=== PATIENT | male | born 1990 | race Caucasian/White ===

== ENCOUNTER → 2018-03-18 11:31 | Outpatient (CLI) | payer MEDICAID, SELFPAY ==
--- NOTE | 2018-03-18 | DI.RAD.S_ITS ---
PROCEDURE: XR TIBIA FIBULA RT 2V INDICATIONS: 27-year-old male with cerebral palsy, and prior tibial plateau fracture fixation. TECHNIQUE: 2 views of the tibia and fibula were acquired. COMPARISON: [facility], CR, XR KNEE 1 OR 2VW LT, 04/04/2017, 14:09. [facility], CR, XR KNEE 1 OR 2VW LT, 01/21/2017, 10:52. [facility], CR, XR KNEE 1 OR 2VW LT, 12/27/2016, 13:30. [facility], CR, XR KNEE 1 OR 2VW LT, 12/11/2016, 14:17. [facility], CR, XR KNEE 1 OR 2VW LT, 12/04/2016, 12:29. FINDINGS: Bones: Lateral tibial plateau buttress plate and screws remain intact and in expected positions. No new fractures or dislocations. No suspicious bony lesions. Soft tissues: No suspicious soft tissue calcifications or masses. IMPRESSION: Status post open reduction internal fixation of lateral tibial plateau fracture, with surgical hardware remaining intact and in expected positions. Dictated by: Jonathan Hong M.D. on 03/18/2018 at 12:29 Approved by: Jonathan Hong M.D. on 03/18/2018 at 12:31
--- NOTE | 2018-03-18 | DI.RAD.S_ITS ---
PROCEDURE: XR TIBIA FUBULA RT 2V INDICATIONS: 27-year-old male with cerebral palsy and lower leg trauma. TECHNIQUE: 2 views of the tibia and fibula were acquired. COMPARISON: None. FINDINGS: Bones: No fractures or dislocations. No suspicious bony lesions. Soft tissues: No suspicious soft tissue calcifications or masses. IMPRESSION: Normal right lower leg. Dictated by: Jonathan Hong M.D. on 03/18/2018 at 12:28 Approved by: Jonathan Hong M.D. on 03/18/2018 at 12:29
== END ==
PROVIDERS: Visit Provider Family Medicine
DX: S89.91XA Unspecified injury of right lower leg, initial encounter (principal); G80.9 Cerebral palsy, unspecified; S82.201D Unspecified fracture of shaft of right tibia, subsequent encounter for closed fracture with routine healing
CPT/HCPCS: 73590